=== PATIENT | female | born 1985 | race Caucasian/White ===

== ENCOUNTER 2020-12-06 18:31 | Emergency (ER) | payer MEDICAID ==
[~2020-12-06] VITALS: Ht 165.1 cm; Wt 89.0 kg
[2020-12-06] MEDS ORDERED: KETOROLAC 30MG/ML VIAL IM ONE (23:15)
[2020-12-07] MEDS ORDERED: TOPUD MT (01:19)
[2020-12-07] MEDS ORDERED: NAPR-1176 MT (01:19)
[2020-12-07 02:20] VITALS: BP 139/56
== END 2020-12-07 02:26 | disposition home or self-care (01) ==
LOC: ER 18:31
DX: M79.671 Pain in right foot (principal); R07.89 Other chest pain
CPT/HCPCS: 71101; 73610; 73630; 81025; 96372; 99284; J1885